=== PATIENT | male | born 1950 | race Asian ===

== ENCOUNTER 2020-12-06 16:38 | Inpatient (IN) | payer MEDICARE, OTHER ==
[~2020-12-06] VITALS: Ht 175.3 cm; Wt 79.5 kg
[2020-12-06 16:48] VITALS: BP 153/83
[2020-12-06] MEDS ORDERED: HYDROCODON-ACE1 EAC7 PO (16:51)
[2020-12-06] MEDS ORDERED: AMITIZA 24 MCG24 MCG PO (16:51)
[2020-12-06] MEDS ORDERED: CLONAZEPAM 0.50.5 M1 PO (16:51)
[2020-12-06] MEDS ORDERED: VASCEPA1 GM PO (16:51)
[2020-12-06] MEDS ORDERED: ATORVASTATIN CA20 MG PO (16:51)
[2020-12-06] MEDS ORDERED: ALLOPURINOL 30300 M1 PO (16:51)
[2020-12-06] MEDS ORDERED: KAPSPARGO SPRIN50 MG PO (16:52)
[2020-12-06] MEDS ORDERED: PROTONIX40 M4 PO (16:52)
[2020-12-06] MEDS ORDERED: LISINOPRIL10 MG PO (16:53)
[2020-12-06 17:08] LABS: ABSOLUTE EOSINOPHILS 0.2 thou/uL (0.0-0.7); ABSOLUTE LYMPHOCYTES 2.7 thou/uL (0.8-5.3); ABSOLUTE MONOCYTES 0.4 thou/uL (0.0-1.2); ABSOLUTE NEUTROPHILS 4.7 thou/uL (1.6-8.1); BASOPHILS 0.6 %; EOSINOPHILS 2.1 %; HEMATOCRIT 44.9 % (42.0-52.0); HEMOGLOBIN 15.4 gm/dL (14.0-18.0); MCH 30.5 pg (26.0-34.0); MCHC 34.2 g/dL (28.0-37.0); MCV 89.3 fL (80.0-100.0); MONOCYTES 4.6 %; MPV 8.6 fl. (7.2-11.1); NUCLEATED RBCS 0 /100WBC; PLATELET COUNT* 154 thou/uL (150-400); POLYS 58.7 %; RBC 5.04 mil/uL (4.50-6.00); RDW-CV 13.2 % (10.5-14.5); WBC 7.9 thou/uL (4.0-11.0)
[2020-12-06 17:15] LABS: URINE BILIRUBIN NEGATIVE (Negative); URINE BLOOD 1+ (Negative); URINE COLOR YELLOW; URINE GLUCOSE-RANDOM NEGATIVE (Negative); URINE KETONES NEGATIVE (Negative); URINE LEUKOCYTES-REFLEX NEGATIVE (Negative); URINE NITRITE-REFLEX NEGATIVE (Negative); URINE PROTEIN NEGATIVE (Negative); URINE SPECIFIC GRAVITY >= 1.030 (1.005-1.030); URINE UROBILINOGEN 0.2 E.U./dl (0.2-1.0)
[2020-12-06 17:17] LABS: URINE CLARITY HAZY
[2020-12-06 17:23] LABS: BACTERIA-REFLEX None Seen /HPF (None Seen); CASTS None Seen /LPF (None Seen); CRYSTALS None Seen /LPF (None Seen); SQUAMOUS 0-3 Few /LPF (0-3); URINE RBC 0-2 Rare /HPF (0-2); URINE WBC-REFLEX None Seen /HPF (0-5)
[2020-12-06 17:25] LABS: CALCIUM 9.7 mg/dL (8.5-10.1); CREATININE 1.8 mg/dL (0.6-1.3); POTASSIUM 4.5 mmol/L (3.5-5.1)
[2020-12-06 17:30] LABS: ALBUMIN 3.8 g/dL (3.4-5.0)
[2020-12-06 20:41] VITALS: BP 132/65
[2020-12-06 21:11] VITALS: BP 157/82
[2020-12-06] MEDS ORDERED: ASPIRIN EC81 M1 PO (21:30)
[2020-12-07 07:55] VITALS: BP 138/76
[2020-12-07 15:32] VITALS: BP 131/73
[2020-12-07 20:00] VITALS: BP 132/72
[2020-12-08 04:27] LABS: HEMATOCRIT 39.2 % (42.0-52.0); MCH 30.5 pg (26.0-34.0); MCHC 34.2 g/dL (28.0-37.0); MCV 89.1 fL (80.0-100.0); MPV 8.4 fl. (7.2-11.1); RBC 4.4 mil/uL (4.50-6.00); RDW-CV 13.8 % (10.5-14.5); WBC 5.4 thou/uL (4.0-11.0)
[2020-12-08 04:43] LABS: CALCIUM 8.8 mg/dL (8.5-10.1); CREATININE 1.2 mg/dL (0.6-1.3); HEMOGLOBIN 13.4 gm/dL (14.0-18.0); POTASSIUM 4.1 mmol/L (3.5-5.1)
[2020-12-08 07:34] VITALS: BP 129/76
[2020-12-08 09:38] VITALS: BP 129/76
[2020-12-08 09:46] VITALS: BP 129/76
[2020-12-08 10:22] VITALS: BP 129/76
[2020-12-08 10:29] VITALS: BP 129/76
== END 2020-12-08 10:10 | disposition home or self-care (01) | DRG 694 ==
LOC: M.ERS 16:38 → M.TBA-ER 19:50 → M.3W 20:45
PROVIDERS: Family Medicine; Physician Assistant; ADMIT Internal Medicine; ATTEND Internal Medicine
DX: N13.2 Hydronephrosis with renal and ureteral calculous obstruction (principal); N17.9 Acute kidney failure, unspecified; I25.10 Atherosclerotic heart disease of native coronary artery without angina pectoris; K21.9 Gastro-esophageal reflux disease without esophagitis; I10 Essential (primary) hypertension; Z20.822 Contact with and (suspected) exposure to COVID-19; Z79.899 Other long term (current) drug therapy; Z90.49 Acquired absence of other specified parts of digestive tract